=== PATIENT | male | born 1970 | race Hispanic/Latino ===

== ENCOUNTER 2024-07-12 22:40 | Emergency (ER) | payer OTHER, SELFPAY ==
[2024-07-12] MEDS ORDERED: Ketorolac Tromethamine 30 MG (1 mL) VIAL ONE (23:46)
[2024-07-12] MEDS ORDERED: Insulin Regular, Human 100 UNIT/ML 10 ML VIAL ONE (23:46)
[2024-07-13 00:26] LABS: #Basophils 0.08 10x3/uL (0.0-0.2); %Basophils 0.7 % (0.0-1.0); %Eosinophils 1.6 % (0.0-10.0); %Lymphocytes 23.8 % (21.0-51.0); %Neutrophils 64.4 % (42.0-75.0); Hematocrit 40.7 % (42.0-52.0); Hemoglobin 13.7 g/dL (14.0-18.0); Mean Corpuscular HGB CONC 33.7 g/dL (32.0-36.0); Mean Corpuscular Hemoglobin 31.1 pg (27.0-31.0); Mean Corpuscular Volume 92.5 fL (78.0-98.0); Mean Platelet Volume 9.7 fL (7.4-10.4); Platelet Count 300 10x3/uL (130-400); RBC Distribution Width 11.9 % (11.5-14.5)
[2024-07-13 00:44] LABS: Anion Gap 14 mmol/L (10-20); BUN (Urea Nitrogen) 27 mg/dL (8.4-25.7); Calc. Creatinine Clearance 0 mL/min (70-130); Carbon Dioxide 23 mmol/L (22-29); Chloride 103 mmol/L (98-107); Estimated GFR 83; Glucose 218 mg/dL (70-105); Sodium 136 mmol/L (136-145)
[2024-07-13 01:52] LABS: Actual Bicarbonate (HCO3v) 22.9 mEq/L (22-28); Base Excess -1.3 mEq/L (-2.0 to +3.0); Calcium, Ionized (venous) 1.13 mmol/L (1.16-1.32); Chloride (VBG) 100 mmol/L (98-106); Hematocrit-VBG 42 % (42.0-52.0); Hemoglobin (Hb) 14.4 g/dL (13.1-17.2); Potassium (VBG) 3.86 mmol/L (3.70-5.30); Sodium 136 mmol/L (133-146); pH (venous) 7.409 (7.32-7.43)
== END 2024-07-13 01:50 | disposition home or self-care (01) ==
LOC: ERS 22:40
DX: E11.65 Type 2 diabetes mellitus with hyperglycemia (principal); M54.41 Lumbago with sciatica, right side; I10 Essential (primary) hypertension; E78.5 Hyperlipidemia, unspecified; Z79.899 Other long term (current) drug therapy
CPT/HCPCS: 36415; 36416; 80048; 82010; 82805; 85025; 99284; J1815; J1885